=== PATIENT | female | born 1995 | race Native Hawaiian/Other Pacific Islander ===

== ENCOUNTER 2021-03-02 14:52 | Emergency (ER) | payer OTHER, SELFPAY ==
[2021-03-02 15:09] VITALS: BP 131/81; PULSE 72; RESP 16; TEMP 36.6; O2SAT 98; BMI 43.4
--- NOTE | 2021-03-02 16:18 | ED.DENTAL ---
HPI - Dental/Oral General Chief complaint: Dental/Oral Stated complaint: QUEST GUM INFECTION Time Seen by Provider: 03/02/21 15:41 Source: patient Mode of arrival: ambulatory Limitations: no limitations History of Present Illness HPI Narrative: 25 y/o female with 4 days of bleeding gums. When she brushes her teeth or gums bleed and her gums are painful. She feels that her gums are swollen especially in her back molars. She has no dentist and has not seen a dentist in years. No recent dental work. No fevers, she can swallow and open her mouth all the way. No nausea or vomiting. Related Data Previous Rx's Medication Instructions Recorded amoxicillin 875 mg-potassium 1 tab PO BID 10 Days #20 tab 03/02/21 clavulanate 125 mg tablet (Augmentin) chlorhexidine gluconate 0.12 % 15 ml BUCCAL BID 14 Days #473 ml 03/02/21 mouthwash Allergies Allergy/AdvReac Type Severity Reaction Status Date / Time No Known Allergies Allergy Unverified 03/14/20 16:23 Review of Systems Review of Systems: Constitutional : No Weight loss, No Fever, No Chills, No Night Sweats,No Fatigue, No Malaise ENT/Mouth : + gum pain, bleeding gums. No dental pain. NoSinus Pain, No Hoarseness, No sore throat, No Rhinorrhea, NoSwallowing Difficulty Eyes: No Eye Pain, No Swelling, No Redness, No Foreign Body, NoDischarge, No Vision Changes Cardiovascular : No Chest Pain, No SOB, No Dyspnea on Exertion, NoOrthopnea, No Edema, No Palpitations Respiratory : No Cough, No Sputum, No Wheezing, No Smoke Exposure, No Dyspnea Gastrointestinal : No Nausea, No Vomiting, No Diarrhea, NoConstipation, No abdominal Pain, Genitourinary : no irregular bleeding, No Dysuria, No UrinaryFrequency, No Hematuria, No Urinary Incontinence, No Urgency, No FlankPain, No Urinary Flow Changes, No Hesitancy Musculoskeletal : No joint pain, No Myalgias, No Joint Swelling Skin : No Skin Lesions, No rash PMFSH Past Medical History Medical History (Updated 03/02/21 @ 16:24 by NORA Pinzon) No known health problems Social History Social History Advance Directives: No Advance Directives Information Provided: No Patient : No Physical Exam Vital Signs: Vital Signs: Last Vital Signs Temp 97.8 F 03/02/21 15:09 Pulse 72 03/02/21 15:09 Resp 16 03/02/21 15:09 BP 131/81 03/02/21 15:09 Pulse Ox 98 03/02/21 15:09 Body Mass Index 43.4 Const: General: cooperative, no acute distress, well developed, alert and awake Nutritional Appearance: well nourished Orientation/consciousness: patient oriented x3 Limitations: no limitations HENMT: Head: Yes normal to inspection, Yes normocephalic and Yes atraumatic Ears: hearing grossly normal bilaterally, external ears normal, TM's normal bilaterally and EAC's normal General nose exam: Normal external nose present Face and sinus: Yes normal facial exam and Yes sinuses nontender Mouth: tongue normal, oropharynx normal, moist mucous membranes, no muffled voice, no trismus and No restricted motion Teeth and gingiva: gingiva abnormal diffusely erythematous, tender and discolored; Negative for not hypertrophic and without any purulent discharge and dentition not poor Throat: Yes posterior oropharynx normal Eyes: Conjunctivae: conjunctivae normal Pupils: Equal, round and reactive pupils present EOM: EOMs intact bilaterally Neck: Neck: Yes full ROM, Yes no lymphadenopathy and Yes supple Resp: Effort & Inspection: normal respiratory effort and able to speak in complete sentences Auscultation: clear to auscultation bilaterally, no crackles, no rales, no rhonchi and no wheezes Cardio: Rate: regular rate Rhythm: regular rhythm Heart sounds: S1 normal heart sound present and S2 normal heart sound present Skin: General skin exam: no rashes or lesions noted Neuro: General: patient oriented x3, tone normal and moves all extremities Cranial nerves: Yes Equal, round and reactive pupils present Extrem: General: Yes normal to inspection and Yes full ROM Psych: Appearance: grossly normal Affect: normal affect Attitude: cooperative Thought process: Normal thought process present Course Course Course Narrative: 25-year-old female who has not seen a dentist in years presents with gingival swelling, pain, bleeding. On exam, patient as well as appearing, afebrile, no trismus, no fullness or tenderness on the floor of the mouth, no hoarseness, no drooling, no neck pain, no swelling under her chin. Posterior oropharynx is normal, patient discolored gingiva that is tender to touch an bleeds when I touch. Consult soft toothbrush, chlorhexidine mouthwash, Augmentin, follow up with dentist Gave return precautions Discharge Plan Discharge Clinical Impression: Acute gingivitis Patient Disposition: Home, Self-Care Instructions: Gingivitis (ED) Additional Instructions: Please use the mouthwash 3 times a day, and take your oral antibiotics as prescribed. Please use a soft toothbrush. Please call the dentist on Wednesday and arrange for a appointment as soon as possible. If you have trouble opening your mouth, swelling under your jaw, if you feel you have swelling in the floor of your mouth, if you have trouble swallowing, if you have fevers, please return to emergency room Prescriptions: New amoxicillin-pot clavulanate [Augmentin] 875-125 mg tablet 1 tab PO BID 10 Days Qty: 20 RF: 0 chlorhexidine gluconate 0.12 % mouthwash 15 ml buccal BID 14 Days Qty: 473 RF: 0 Interventions: ED Discharge Assessment Last Done: 03/02/21 16:27 Discharge Date/Time: 03/02/21 16:28
== END 2021-03-02 16:28 | disposition home or self-care (01) ==
PROVIDERS: Emergency Provider Emergency Medicine; PCP Physician Assistant
DX: K05.00 Acute gingivitis, plaque induced (principal); Z79.899 Other long term (current) drug therapy
CPT/HCPCS: 99283

== ENCOUNTER 2021-09-10 08:58 | Outpatient (REF) | payer OTHER, SELFPAY ==
[2021-09-10 15:57] LABS: CT PCR NOT DETECTED (Not Detect.); NG PCR NOT DETECTED (Not Detect.)
== END 2021-09-10 08:59 | disposition home or self-care (01) ==
LOC: HO.LAB 08:58
PROVIDERS: PCP Physician Assistant; Visit Provider Advanced Practice Midwife
DX: Z01.419 Encounter for gynecological examination (general) (routine) without abnormal findings (principal); Z20.2 Contact with and (suspected) exposure to infections with a predominantly sexual mode of transmission
CPT/HCPCS: 87491; 87591; 88142

== ENCOUNTER 2021-10-03 13:43 | Outpatient (REF) | payer OTHER, SELFPAY ==
[2021-10-03 14:38] LABS: Influenza A PCR POSITIVE (Negative); Influenza B PCR NEGATIVE (Negative); Resp Syncy Virus RNA Qual PCR NEGATIVE (Negative); SARS COV2 PCR INHOUSE NEGATIVE (Negative)
== END 2021-10-03 13:44 | disposition home or self-care (01) ==
LOC: HO.LNP 13:43
PROVIDERS: Visit Provider Internal Medicine
DX: Z20.822 Contact with and (suspected) exposure to COVID-19 (principal); R43.9 Unspecified disturbances of smell and taste
CPT/HCPCS: 0241U

== ENCOUNTER 2021-10-06 17:38 | Outpatient (REF) | payer OTHER, SELFPAY | END 2021-10-06 17:39 | disposition home or self-care (01) | LOC: HO.LNP 17:38 | PROVIDERS: Visit Provider Physician Assistant | DX: R35.0 Frequency of micturition (principal) | CPT/HCPCS: 87086 ==

== ENCOUNTER 2022-03-30 17:53 | Emergency (ER) | payer OTHER, SELFPAY ==
--- NOTE | ~2022-03-30 | US_ITS ---
EXAMINATION: US PELVIS COMPLETE CLINICAL INFORMATION: Pain COMPARISON: None TECHNIQUE: Transabdominal and transvaginal imaging was performed. FINDINGS: The uterus is of normal size and echogenicity measuring 6.1 x 2.8 x 4.4 cm. Uterus is retroverted in position. A regular homogeneous endometrium is identified measuring 0.6 cm. Both ovaries are of normal size and echogenicity. The right measures 2.8 x 1.3 x 1.8 cm for a volume of 3.4 mL. The left measures 2.4 x 1.6 x 1.5 cm for a volume of 3 mL. There is no pelvic free fluid. US/US pelvic and transvaginal IMPRESSION: Retroverted uterus. Ovaries are of normal size and echogenicity.
[2022-03-30 18:31] VITALS: BP 129/81; PULSE 76; RESP 18; TEMP 37.3; O2SAT 97; BMI 37.4
[2022-03-30 19:25] LABS: UPreg QC Valid YES; Urine Pregnancy NEGATIVE (NEGATIVE)
[2022-03-30 19:26] LABS: Appearance Urine Turbid; Color Urine Yellow; Glucose Urine UA Negative (Negative); Leukocyte Esterase Urine Negative (Negative); Nitrite Urine Negative (Negative); PH 7.5 (5.0-9.0); UMIC TRIGGER UACC YES; Urine Blood Moderate (2+) (Negative); Urine Ketones Trace mg/dL (Negative); Urine Protein Negative (Neg-Trace)
--- NOTE | 2022-03-30 19:32 | ED_ITS ---
HPI - Female Genitourinary General Chief complaint: Urogenital-Female Stated complaint: vaginal pain Time Seen by Provider: 03/30/22 19:18 Source: patient Mode of arrival: ambulatory Limitations: no limitations History of Present Illness HPI Narrative: Patient presents emergency department for evaluation of vaginal pain. Additionally having urethral pain/discomfort after urination. Onset was 2-3 weeks ago. Reports heavy clear/white discharge associated with this. States that today she had vaginal bleeding with presence of small clots, she is due for her menses, but does not believe that this is menstrual bleeding as she has had no premenstrual symptoms which she always does. Last menstrual period was the end of January/early February. Reports last sexual intercourse to be in December 2021. Not on any formal contraceptives. Has not taken a test. Denies fevers, chills, nausea, vomiting, abdominal pain, flank pain. Related Data Previous Rx's Medication Instructions Recorded albuterol sulfate 90 mcg/actuation 1 inh inhalation QID PRN shortness 10/03/21 aerosol inhaler of breath or wheezing #6.7 grams nitrofurantoin 100 mg PO Q12H 5 days #10 caps 10/06/21 monohydrate/macrocrystals 100 mg capsule (Macrobid) pantoprazole 20 mg tablet,delayed 20 mg PO DAILY 14 days #14 tabs 02/04/22 release cefuroxime axetil 250 mg tablet 250 mg PO Q12H #14 tabs 03/30/22 Allergies Allergy/AdvReac Type Severity Reaction Status Date / Time No Known Allergies Allergy Verified 03/30/22 18:37 Review of Systems Review of Systems: Constitutional : No Fever, No Chills ENT/Mouth : No sore throat, No Rhinorrhea Eyes: No Eye Pain, No Redness Cardiovascular : No Chest Pain, No SOB Respiratory : No Cough, No Sputum, No Wheezing Gastrointestinal : No Nausea, No Vomiting, No Diarrhea, no abdominal pain, Genitourinary : positive irregular bleeding, No Dysuria, No Urinary Frequency, positive pelvic pain Musculoskeletal : No Myalgias Skin : No rash Neuro : No Weakness, No Headache Psych : No Anxiety/Panic, No Depression Heme/Lymph: No bruising, No Lymphadenopathy Endocrine : No Polyuria, No Polydipsia Yes all other systems are reviewed and are negative [facility] Past Medical History Attestation statement: The following information was validated with the patient. Source: old records reviewed Medical History No known health problems Obese (Unknown) Surgical History Hx of tonsillectomy Family History Family History Father Heart attack, Onset Age: 50 Social History Social History Housing: House Alcohol intake: current Alcohol intake frequency: holidays/special occasions only Patient Tobacco Use Status: Never used Tobacco Tobacco use type: Cigarette e-Cigarette/Vaping Use: Never Used Second Hand Smoke Exposure: No Advance Directives: No Advance Directives Information Provided: No Current occupational status: employed Current occupation: [employer] Cognitive needs: No Hearing needs: No Vision needs: No Physical Exam Vital Signs: Vital Signs: Last Vital Signs Temp 99.2 F 03/30/22 18:31 Pulse 76 03/30/22 18:31 Resp 18 03/30/22 18:31 BP 129/81 03/30/22 18:31 Pulse Ox 97 03/30/22 18:31 O2 Del Method 03/30/22 18:31 BMI result Body Mass Index 37.4 Vital signs have been reviewed as normal and appeared to be correct. Blood pressure normal.? Heart rate normal.? Respiration rate normal. Temperature normal.? Oxygen saturation normal. Appearance: Alert.?Oriented to person, place and time. No acute distr ess.?Normal affect. Eyes: Pupils equal, round and reactive to light.? ENT: Pharynx normal.?? Neck: Normal inspection.? Neck supple.?? CVS: Heart sounds normal. Normal heart rate and rhythm.? Pulses normal.?? Respiratory: No respiratory distress.? Lung sounds clear to auscultation bilaterally?? Abdomen: Soft and non-tender. Normoactive bowel sounds. Genitourinary:? Supervised by ED KATE Reed. Normal external appearance of urethra.? No lesions/lacerations or discharge or tenderness noted. No Bartholin cyst noted.? Speculum exam: normal appearance/palpation of vagina normal. No abnormal vaginal discharge, swelling, erythema, laceratons, or active bleeding noted.?No foreign bodies noted.? No vaginal tenderness noted.? Normal appearance of cervix. Normal palpation of cervix.? Cervical os is closed.? No abnormal cervical discharge noted.? No cervical lesion/mass.?? No cervical motion tenderness noted.? Negative chandelier sign.? Normal bimanual exam.? Uterine size normal. Uterine consistency normal.? Bladder normal to palpation. Normal adnexa. Normal rectovaginal exam.? Skin: Skin warm and dry.? Normal skin color.? Extremities: No lower extremity edema.? Neuro: Moves all extremities spontaneously. Sensation intact bilaterally. No focal neuro deficits. Ambulates with normal steady gait. Course Course Course Narrative: Patient is a 26-year-old female with no significant past medical history presents to the emergency department for evaluation of dysuria and pelvic pain times 2-3 weeks. Denies concern for sexually transmitted infection or possibility of . She is overall well-appearing. Vital signs are stable, she is afebrile without tachycardia. Abdominal exam is benign. Will obtain urinalysis, urine , chlamydia and gonorrhea testing, Trichomonas testing, bacterial vaginosis panel, perform pelvic exam, obtain pelvic ultrasound. Differential includes sexually transmitted infection, bacterial vaginosis, pelvic inflammatory disease, ovarian cyst, uterine fibroid. Reevaluation(s) Reevaluation #1: CBC reveals no anemia. BMP is normal. Pelvic ultrasound reveals no acute abnormalities. Urine test is negative. urinalysis reveals hematuria, no evidence of urinary tract infection, However she is having post voiding burning. discussed all findings with patient. At this time will trial treatment for urinary tract infection, and patient is to follow-up with primary care provider/[facility] provider for further evaluation and treatment. We discussed worrisome signs and symptoms to return back to the emergency department for. All questions were answered, patient discharged home in stable condition. Time: 21:34 [facility] - Female Genitourinary Medical Records Attestation: I reviewed the patient's medical records. Lab Data Attestation: I reviewed the patient's lab results. Result diagrams: 03/30/22 20:10 03/30/22 20:10 Labs: Lab Results 03/30/22 03/30/22 03/30/22 Range/Units 18:52 18:52 20:10 WBC 10.0 (4.8-10.8) X10*3/uL RBC 4.45 (4.20-5.50) X10*6/uL Hgb 13.0 (12.0-16.0) g/dl Hct 38.4 (37.0-47.0) % MCV 86.3 (80.0-98.0) fL MCH 29.2 (27.0-33.0) pg MCHC 33.9 (31.0-35.0) g/dl RDW 11.9 (11.0-16.0) % Plt Count 378 (160-400) X10*3/uL MPV 9.3 L (9.4-12.3) fL Immature Gran % (Auto) 0.3 (0.0-0.4) % Neut % (Auto) 57.7 (45-73) % Lymph % (Auto) 34.8 (20-40) % [place] % (Auto) 5.5 (2-11) % Eos % (Auto) 1.1 (0-4) % Baso % (Auto) 0.6 (0-2) % Lymph # (Auto) 3.5 (1.2-4.9) X10*3/uL [place] # (Auto) 0.6 (0.1-1.2) X10*3/uL Eos # (Auto) 0.1 (0.0-0.4) X10*3/uL Baso # (Auto) 0.1 (0.0-0.2) X10*3/uL Abs Immat Gran (auto) 0.03 (0.00-0.03) X10*3/uL Absolute Neuts (auto) 5.7 (2.0-8.3) x10*3/uL Absolute Nucleated RBC 0.000 (0.0-0.012) X10*3/uL Nucleated RBC % (auto) 0.0 (0.0-0.2) /100WBC Sodium (135-145) mmol/L Potassium (3.3-5.1) mmol/L Chloride (96-108) mmol/L Carbon Dioxide (22-29) mmol/L Anion Gap (12-20) BUN (9-16) mg/dL Creatinine (0.5-1.4) mg/dL Estim Creat Clear Calc Estimated GFR Random Glucose (60-115) mg/dL Calcium (8.4-10.2) mg/dL Urine Color Yellow Urine Appearance Turbid Urine pH 7.5 (5.0-9.0) Ur Specific [place] 1.020 (1.005-1.025) Urine Protein Negative (Neg-Trace) mg/dL Urine Glucose (UA) Negative (Negative) mg/dL Urine Ketones Trace (Negative) mg/dL Urine Blood Moderate (2+) H (Negative) Urine Nitrite Negative (Negative) Ur Leukocyte Esterase Negative (Negative) Urine RBC 11-20 H (0-2) /HPF Urine WBC 0-5 (0-5) /HPF Ur Squamous Epith Cells 6-10 (0-2) /HPF Other Crystals Present Urine Bacteria None Seen (None Seen) Hyaline Casts 0-2 (0-2) /LPF Urine Test NEGATIVE (NEGATIVE) 03/30/22 Range/Units 20:10 WBC (4.8-10.8) X10*3/uL RBC (4.20-5.50) X10*6/uL Hgb (12.0-16.0) g/dl Hct (37.0-47.0) % MCV (80.0-98.0) fL MCH (27.0-33.0) pg MCHC (31.0-35.0) g/dl RDW (11.0-16.0) % Plt Count (160-400) X10*3/uL MPV (9.4-12.3) fL Immature Gran % (Auto) (0.0-0.4) % Neut % (Auto) (45-73) % Lymph % (Auto) (20-40) % [place] % (Auto) (2-11) % Eos % (Auto) (0-4) % Baso % (Auto) (0-2) % Lymph # (Auto) (1.2-4.9) X10*3/uL [place] # (Auto) (0.1-1.2) X10*3/uL Eos # (Auto) (0.0-0.4) X10*3/uL Baso # (Auto) (0.0-0.2) X10*3/uL Abs Immat Gran (auto) (0.00-0.03) X10*3/uL Absolute Neuts (auto) (2.0-8.3) x10*3/uL Absolute Nucleated RBC (0.0-0.012) X10*3/uL Nucleated RBC % (auto) (0.0-0.2) /100WBC Sodium 141 (135-145) mmol/L Potassium 4.2 (3.3-5.1) mmol/L Chloride 104 (96-108) mmol/L Carbon Dioxide 25 (22-29) mmol/L Anion Gap 16 (12-20) BUN 10 (9-16) mg/dL Creatinine 0.69 (0.5-1.4) mg/dL Estim Creat Clear Calc 123.8 Estimated GFR > 60 Random Glucose 85 (60-115) mg/dL Calcium 9.6 (8.4-10.2) mg/dL Urine Color Urine Appearance Urine pH (5.0-9.0) Ur Specific [place] (1.005-1.025) Urine Protein (Neg-Trace) mg/dL Urine Glucose (UA) (Negative) mg/dL Urine Ketones (Negative) mg/dL Urine Blood (Negative) Urine Nitrite (Negative) Ur Leukocyte Esterase (Negative) Urine RBC (0-2) /HPF Urine WBC (0-5) /HPF Ur Squamous Epith Cells (0-2) /HPF Other Crystals Urine Bacteria (None Seen) Hyaline Casts (0-2) /LPF Urine Test (NEGATIVE) Imaging Data pelvic us: Radiologist's impression: US/US pelvic and transvaginal IMPRESSION: ? Retroverted uterus. ? Ovaries are of normal size and echogenicity. Discharge Plan Discharge Clinical Impression: Urinary tract infection, Vaginal pain Patient Disposition: Home, Self-Care Instructions: Urinary Tract Infection in Women (ED) Additional Instructions: As we discussed, your ultrasound was normal. Your blood work was normal. Some of your testing is still pending at this time, if anything results as positive you will receive a call from the hospital. Your urine test did not show obvious bacteria, however given the your experiencing burning with urination we have started to on a course of antibiotics for urinary tract infection, please complete this entire course. Please follow-up with your [facility] provider. You may return to the emergency depar tment any new or worsening symptoms or concerns Prescriptions: New cefuroxime axetil 250 mg tablet 250 mg PO Q12H Qty: 14 0RF No Action pantoprazole 20 mg tablet,delayed release (DR/EC) 20 mg PO DAILY 14 Days Qty: 14 0RF nitrofurantoin monohyd/m-cryst [Macrobid] 100 mg capsule 100 mg PO Q12H 5 Days Qty: 10 0RF Rx Instructions: must administer with a meal/food albuterol sulfate 90 mcg/actuation HFA aerosol inhaler 1 inh inhalation QID PRN (Reason: shortness of breath or wheezing) Qty: 6.7 1RF
[2022-03-30 19:41] LABS: Bacteria Urine None Seen (None Seen); Hyaline Casts Urine 0-2 /LPF (0-2); Other Crystals Urine Present; WBC Urine 0-5 /HPF (0-5)
[2022-03-30 20:14] LABS: MANUAL DIFF FLAG NO
[2022-03-30 20:16] LABS: Basophils Absolute Auto 0.1 X10*3/uL (0.0-0.2); Basophils Percent Auto 0.6 % (0-2); Eosinophils Absolute Auto 0.1 X10*3/uL (0.0-0.4); Eosinophils Percent Auto 1.1 % (0-4); Hematocrit 38.4 % (37.0-47.0); Imm Gran Abs Auto 0.03 X10*3/uL (0.00-0.03); Imm Gran Pct Auto 0.3 % (0.0-0.4); Lymphocytes Absolute Auto 3.5 X10*3/uL (1.2-4.9); Lymphocytes Percent Auto 34.8 % (20-40); Mean Corpuscular HGB Conc 33.9 g/dl (31.0-35.0); Mean Corpuscular Hemoglobin 29.2 pg (27.0-33.0); Mean Corpuscular Volume 86.3 fL (80.0-98.0); Mean Platelet Volume 9.3 fL (9.4-12.3); Monocytes Absolute Auto 0.6 X10*3/uL (0.1-1.2); Monocytes Percent Auto 5.5 % (2-11); Neutrophils Absolute Auto 5.7 x10*3/uL (2.0-8.3); Neutrophils Percent Auto 57.7 % (45-73); Platelet Count 378 X10*3/uL (160-400); Red Blood Count 4.45 X10*6/uL (4.20-5.50); Red Cell Distribution Width 11.9 % (11.0-16.0)
[2022-03-30 20:33] LABS: Anion Gap 16 (12-20); Blood Urea Nitrogen 10 mg/dL (9-16); Calcium 9.6 mg/dL (8.4-10.2); Carbon Dioxide 25 mmol/L (22-29); Chloride 104 mmol/L (96-108); Creatinine Clr Calc Pharmacy 123.8; Estimated Glomerular Filt Rate > 60; Glucose Random 85 mg/dL (60-115); Potassium 4.2 mmol/L (3.3-5.1); Sodium 141 mmol/L (135-145)
[2022-03-31 02:13] LABS: CT PCR NOT DETECTED (Not Detect.); NG PCR NOT DETECTED (Not Detect.)
[2022-03-31 09:02] LABS: BV Int Neg Control Negative (Negative); BV Int Pos Control Positive (Positive)
== END 2022-03-30 22:48 | disposition home or self-care (01) ==
PROVIDERS: Nurse Practitioner Family; Emergency Provider Emergency Medicine; PCP Physician Assistant
DX: R10.2 Pelvic and perineal pain (principal); N39.0 Urinary tract infection, site not specified
CPT/HCPCS: 36415; 76830; 76856; 80048; 81001; 81025; 85025; 87480; 87491; 87510; 87591; 87660; 99282; 99284

== ENCOUNTER 2023-01-28 08:23 | Outpatient (AMB) | payer OTHER, SELFPAY ==
--- NOTE | 2023-01-28 08:35 | MHC.OFFWIV ---
Intake Vital Signs 01/28/23 09:02 BP 104/60 Blood Pressure Location Lt brachial Position Sitting Respiration 20 Pulse 86 Pulse Source Pulse Oximeter Temp 98.5 F Temp Source Oral Pulse Oximetry (%) 100 Oxygen Delivery Method Room Air Intake Visit Reasons: EP, Sore throat Patient Tobacco Use Status: Never used Tobacco Longitudinal Float Operator Required: No Is last menstrual period known: Yes Last menstrual period: 01/22/23 Post menopausal: No Patient : No Allergies No Known Allergies Allergy (Verified 01/28/23 09:04) Medication List - Last Reconciled 01/28/23 by Queenie Gaines RN albuterol sulfate 90 mcg/actuation 1 inh inhalation QID PRN pantoprazole 20 mg PO DAILY 14 days HPI HPI Comments History of Present Illness Details 27-year-old female who presents for 2 days of sore throat. Patient states that she has had sore throat the last 2 days positive fever of 101. She has been taking Tylenol Motrin and numbing spray with some relief. Today she feels a little bit better but was unsure she does not have strep. Denies any shortness of breath does endorse some difficulty swallowing. [facility] Medical History No known health problems Obese (Unknown) Surgical History Hx of tonsillectomy Family History Father Heart attack, Onset Age: 50 Social History Housing: House Alcohol intake: current Alcohol intake frequency: holidays/special occasions only Patient Tobacco Use Status: Never used Tobacco Tobacco use type: Cigarette e-Cigarette/Vaping Use: Never Used Second Hand Smoke Exposure: No Current occupational status: employed Current occupation: [employer] Cognitive needs: No Hearing needs: No Vision needs: No Female Reproductive History Menstrual Date of last menstrual period: 01/22/23 Review of Systems Const All systems reviewed & are unremarkable except as noted in HPI and below Reports fever(s), Denies headache(s) and Denies weakness Eyes Reports no additional complaints ENT Denies headache(s) and Reports sore throat Card Reports no additional complaints, Denies chest pain, Denies leg edema and Denies dyspnea Resp Denies cough and Denies dyspnea GI Denies abdominal pain, Denies nausea and Denies vomiting Denies urinary frequency and Denies dysuria Musc Reports no additional complaints Neuro Denies headache(s) and Denies weakness Psych Reports no additional complaints Endo Reports no additional complaints Physical Exam Const General: cooperative, healthy appearing, comfortable and no acute distress HEENT Other: Mild erythema in the posterior pharynx on the right side. Tonsils not present. No exudates. Uvula midline no trismus. Results AMB Rapid Strep AMB Rapid Strep Negative Last Edit by Queenie Gaines RN on 01/28/23 08:36 Results Reviewed Results Reviewed: Laboratory Last Values Strep Scn Rapid Clinic Negative 01/28/23 08:35 Assessment & Plan Assessment & Plan (1) Pharyngitis: Code(s): J02.9 - Acute pharyngitis, unspecified Plan VSs. Exam patient's insulin oriented no acute distress exam notable for erythema in the posterior pharynx on the right side. No trismus muffled voice uvula deviation. Rapid strep negative patient likely suffering from viral pharyngitis. Discharge instructions, follow up and treatment are discussed with patient in my usual fashion. Alternatives in treatment are also discussed. The patient will return for worsening symptoms or as needed. Advised that any labs/imaging ordered will be followed up on and contact made if further treatment needed. Counseled that patient's condition may require further evaluation and/or treatment. Symptoms of concern for worsening disorder discussed in detail in my customary manner. Patient does verbalize understanding of the plan, there are no apparent barriers to communication. The patient is given the opportunity to ask questions and have them answered to his/her satisfaction Orders: Orders AMB Rapid Strep Screen Today J02.9 - Acute pharyngitis, unspecified Patient Instructions: Your rapid strep test is negative, In the meantime soothing relief is often obtained from the following: a cup of tea with honey a cup of tea with lemon hot chocolate Chicken bullion or soup warm salt water gargles or baking soda. Mix 1 teaspoon of salt with 1 cup of water gargle for 5 to 10 seconds and then spit and repeat as needed. You can also do this with 1 teaspoon of baking soda. There are many [id number] medications to help soothe a sore throat I would suggest: CEPACOL LOZENGES CHLORASEPTIC THROAT SPRAY. There are many others.. Coding Level of Care Code Est Pt Level 3 (83015) Diagnoses Pharyngitis J02.9
[2023-01-28 09:02] VITALS: BP 104/60; PULSE 86; RESP 20; TEMP 36.9; O2SAT 100
== END 2023-01-28 08:44 | disposition home or self-care (01) ==
PROVIDERS: PCP Physician Assistant; Visit Provider Physician Assistant
DX: J02.9 Acute pharyngitis, unspecified (principal)
CPT/HCPCS: 87880; 99213

== ENCOUNTER 2023-04-22 14:42 | Outpatient (AMB) | payer OTHER, SELFPAY ==
--- NOTE | 2023-04-22 15:05 | A.OFFPC_ITS ---
Vital Signs 04/22/23 15:06 Height 5 ft 1 in Weight 183 lb BMI 34.6 BP 124/68 Blood Pressure Location Lt brachial Position Sitting Pulse 71 Pulse Source Pulse Oximeter Pulse Oximetry (%) 99 Oxygen Delivery Method Room Air Intake Visit Reasons: PE Allergies No Known Allergies Allergy (Verified 04/22/23 15:15) Medication List - Last Reconciled 04/22/23 by CHAYO Richey No Known Home Meds Tobacco use date assessed: 04/22/23 Dental Screening Dental Screen Date: 04/22/23 Did you have a dental visit in the last 12 months?: Yes Did you have a dental problem in the last 6 months where you did not have access to dental care?: No Was dental information given to patient?: Patient has dentist HPI PE HPI Details Patient is a 28-year-old female who presents today for physical exam. Medical history significant for GERD-stable with diet control. Patient has an upcoming appointment with [facility] for Pap smear 06/2023. Denies issues with alcohol. Denies eye problems, does not see eye doctor. Dentist visit up-to-date. Reports intermittent premenstrual headaches that are relieved by ghis-sjj-booyocj Tylenol or ibuprofen. No shortness of breath or chest pain. Patient is due for blood work. [facility] Medical History Bladder pain Urinary frequency Upper respiratory tract infection Urinary tract infection MDD (major depressive disorder), recurrent episode, moderate Post-COVID chronic anxiety YAJAIRA (generalized anxiety disorder) Obese (Unknown) No known health problems Surgical History Hx of tonsillectomy Family History Father Heart attack, Onset Age: 50 Social History Housing: House Alcohol intake: current Alcohol intake frequency: holidays/special occasions only Patient Tobacco Use Status: Never used Tobacco (marijuana ) e-Cigarette/Vaping Use: Currently Using (sometimes ) Second Hand Smoke Exposure: No Current occupational status: employed Current occupation: [employer] Cognitive needs: No Hearing needs: No Vision needs: No Questionnaire PHQ-9 Over the last 2 weeks, how often have you been bothered by any of the following problems? 1. Little interest or pleasure in doing things: not at all 2. Feeling down, depressed, or hopeless: not at all 3. Trouble falling or staying asleep, or sleeping too much: not at all 4. Feeling tired or having little energy: not at all 5. Poor appetite or overeating: not at all 6. Feeling bad about yourself - or that you are a failure or have let yourself or your family down: not at all 7. Trouble concentrating on things, such as reading the newspaper or watching television: not at all 8. Moving or speaking so slowly that other people could have noticed. Or the opposite - being so fidgety or restless that you have been moving around a lot more than usual: not at all 9. Thoughts that you would be better off or of hurting yourself in some way: not at all Total score: 0 Depression Screening Interpretation: Negative Depression Screening Done: Yes 77153 - PHQ-9 Billing: Yes Source: Developed by Drs. Tl Navarrete, Xiomara Ann, Ramses Reilly and colleagues, with an educational hemant from [employer]. Thrive Questionnaire Date Thrive assessed: 10/06/21 AUDIT C Alcohol Use Questionnaire (AUDIT-C) 1. How often do you have a drink containing alcohol?: 2-4 times a month 2. How many drinks containing alcohol do you have on a typical day when you are drinking?: 3 or 4 3. How often do you have six or more drinks on one occasion?: Never Total Score: 3 Score Reviewed/Action Taken: Yes YAJAIRA-7 AMB Questionnaire YAJAIRA-7 Date YAJAIRA - 7 assessed: 04/22/23 Feeling nervous, anxious, or on edge: 0 = Not at all Not being able to stop or control worryin = Not at all Worrying too much about different things: 0 = Not at all Trouble relaxin = Not at all Being so restless that it is hard to sit still: 0 = Not at all Becoming easily annoyed or irritable: 0 = Not at all Feeling afraid as if something awful might happen: 0 = Not at all Total YAJAIRA-7 score (0-4 normal; 5-9 mild; 10-14 moderate; 15-21 severe): 0 Source: Developed by Drs. Tl Navarrete, Xiomara Ann, Ramses Reilly and colleagues, with an educational hemant from [employer]. YAJAIRA-7 Assessment Billing YAJAIRA-7 Assessment Tool: YAJAIRA-7 Assessment 12638 Review of Systems Const Denies body aches, Denies chills, Denies fever(s) and Reports headache(s) (Intermittent) ENT Denies dizziness, Denies otalgia, Reports headache(s) (Intermittent), Denies nasal discharge, Denies sinus pain and Denies sore throat Card Denies chest pain, Denies edema, Denies lightheadedness and Denies dyspnea Resp Denies cough, Denies dyspnea and Denies wheezing GI Denies abdominal pain, Denies constipation, Denies diarrhea, Denies nausea and Denies vomiting Denies dysuria Musc Denies myalgias Skin/Breast Denies rash Neuro Denies dizziness and Reports headache(s) (Intermittent) Aller/Immun Denies wheezing Physical exam (Primary Care) Vital Signs: Last Vital Signs Pulse 71 04/22/23 15:06 BP 124/68 04/22/23 15:06 Pulse Ox 99 04/22/23 15:06 Oxygen Delivery Method Room Air 04/22/23 15:06 BMI result Body Mass Index 34.6 Tobacco/Smoking Status: Tobacco use Status Tobacco use date assessed 04/22/23 04/22/23 15:11 Patient Tobacco Use Status Never used Tobacco ( 04/22/23 15:11 marijuana ) Tobacco use type 04/22/23 15:11 e-Cigarette/Vaping Use Currently Using (sometimes ) 04/22/23 15:11 PHQ-9: PHQ-9 Score PHQ-9: Total score 0 04/22/23 15:11 Depression Screening Interpretation: Negative Thrive Assessment: Date of Thrive Assessment Date Thrive assessed 10/06/21 04/22/23 15:11 Const General: cooperative and no acute distress Orientation/consciousness: patient oriented x3 HENMT Head: Yes normocephalic and Yes atraumatic Ears: TM's normal bilaterally Face and sinus: Yes sinuses nontender Mouth: oropharynx normal and moist mucous membranes Throat: Yes posterior oropharynx normal Eyes General: appearance normal, both eyes and all related structures Pupils: Equal, round and reactive pupils present EOM: EOMs intact bilaterally Neck Neck: Yes normal visual inspection, Yes full ROM and Yes no lymphadenopathy Thyroid: Thyroid normal Resp Effort & Inspection: normal respiratory effort and able to speak in complete sentences Auscultation: clear to auscultation bilaterally, no crackles, no rales, no rhonchi and no wheezes Cardio Rate: regular rate Rhythm: regular rhythm Heart sounds: S1 normal heart sound present, S2 normal heart sound present and no murmurs GI Palpation (GI): Soft to palpation, not firm, nontender, no guarding, not rigid and no hepatosplenomegaly Auscultation: normal bowel sounds General: No CVA tenderness Back/Spine/Pelvis Back: No CVA tenderness Skin General skin exam: no rashes or lesions noted Neuro General: patient oriented x3 Cranial nerves: Yes Equal, round and reactive pupils present Gait exam (Neuro): Normal gait present Extrem General: Yes full ROM and No edema Assessment and Plan Assessment & Plan (1) GERD (gastroesophageal reflux disease): Code(s): K21.9 - Gastro-esophageal reflux disease without esophagitis Plan: Avoid GERD trigger foods Do not lay down 2-3 hours after evening meal Patient reports intermittently taking prjc-zbx-qowclpt antiacid medications (2) Annual physical exam: Code(s): Z00.00 - Encounter for general adult medical examination without abnormal findings Plan: Repeat in 1 year (3) Premenstrual headache: Code(s): G43.829 - Menstrual migraine, not intractable, without status migrainosus Plan: Reports intermittent premenstrual headaches that are relieved by ltxi-zpu-gvpzonh Tylenol or ibuprofen. Patient is to notify office if worsening headaches Orders: Orders TSH reflex Free T4 Today Z00.00 - Encounter for general adult medical examination without abnormal findings Comprehensive Met. Panel Today Z00.00 - Encounter for general adult medical examination without abnormal findings Complete Blood Count Auto Diff Today Z00.00 - Encounter for general adult medical examination without abnormal findings Vitamin D 25-OH Total Today Z00.00 - Encounter for general adult medical examination without abnormal findings Coding Level of Care Code Est Pt Prev Care 18-39y(86645) Diagnoses GERD (gastroesophageal reflux disease) K21.9 Annual physical exam Z00.00 Premenstrual headache G43.829 Additional Codes YAJAIRA-7 Assessment Billing - YAJAIRA-7 Assessment Tool: YAJAIRA-7 Assessment [id number] ([id number])
[2023-04-22 15:06] VITALS: BP 124/68; PULSE 71; O2SAT 99; BMI 34.6
== END 2023-04-22 15:24 | disposition home or self-care (01) ==
PROVIDERS: PCP Physician Assistant; Visit Provider Nurse Practitioner Family
DX: K21.9 Gastro-esophageal reflux disease without esophagitis (principal); Z00.00 Encounter for general adult medical examination without abnormal findings; G43.829 Menstrual migraine, not intractable, without status migrainosus
CPT/HCPCS: 99395

== ENCOUNTER 2023-12-01 08:02 | Outpatient (AMB) | payer OTHER, SELFPAY ==
[2023-12-01 08:10] VITALS: BP 118/72; BMI 34.8
--- NOTE | 2023-12-01 08:10 | MHC.PC.OV ---
Vital Signs 12/01/23 08:10 Height 5 ft 1 in Weight 184 lb 6 oz BMI 34.8 BP 118/72 Blood Pressure Location Lt brachial Position Sitting Pulse Source Pulse Oximeter Oxygen Delivery Method Room Air Intake Visit Reasons: stomach pain Production Miner Required: No Accompanied by: Self / Same As Patient Allergies No Known Allergies Allergy (Verified 12/01/23 08:11) Tobacco use date assessed: 12/01/23 Dental Screening Dental Screen Date: 12/01/23 Did you have a dental visit in the last 12 months?: Yes Did you have a dental problem in the last 6 months where you did not have access to dental care?: No Was dental information given to patient?: Patient has dentist HPI stomach pain HPI Details Patient is a 28-year-old female here today for problem visit. Patient has not been seen at the primary care office for nearly 2 years. Patient's past medical history significant for obesity and GERD. She reports over the last 2 weeks having left upper quadrant abdominal pain worse when she eats. She reports the pain radiates into her back at times. She otherwise denies any vomiting, diarrhea, constipation, fever chills. [facility] Medical History Bladder pain Urinary frequency Upper respiratory tract infection Urinary tract infection MDD (major depressive disorder), recurrent episode, moderate Post-COVID chronic anxiety YAJAIRA (generalized anxiety disorder) Obese (Unknown) No known health problems Surgical History Hx of tonsillectomy Family History Father Heart attack, Onset Age: 50 Social History Housing: House Alcohol intake: current Alcohol intake frequency: holidays/special occasions only Patient Tobacco Use Status: Never used Tobacco (marijuana ) e-Cigarette/Vaping Use: Never Used (sometimes ) Second Hand Smoke Exposure: No Current occupational status: employed Current occupation: [employer] Cognitive needs: No Hearing needs: No Vision needs: No Questionnaire PHQ-9 Over the last 2 weeks, how often have you been bothered by any of the following problems? 1. Little interest or pleasure in doing things: not at all 2. Feeling down, depressed, or hopeless: not at all 3. Trouble falling or staying asleep, or sleeping too much: not at all 4. Feeling tired or having little energy: not at all 5. Poor appetite or overeating: not at all 6. Feeling bad about yourself - or that you are a failure or have let yourself or your family down: not at all 7. Trouble concentrating on things, such as reading the newspaper or watching television: not at all 8. Moving or speaking so slowly that other people could have noticed. Or the opposite - being so fidgety or restless that you have been moving around a lot more than usual: not at all 9. Thoughts that you would be better off or of hurting yourself in some way: not at all Total score: 0 Depression Screening Interpretation: Negative Depression Screening Done: Yes 76781 - PHQ-9 Billing: Yes Source: Developed by Drs. Tl Navarrete, Xiomara Ann, Ramses Reilly and colleagues, with an educational hemant from [employer]. Thrive Questionnaire Date Thrive assessed: 12/01/23 I am a: Patient What is your living situation today?: I have a steady place to live Within the past 12 months, did the food you bought not last and you didn't have the money to get more?: Never true Within the past 12 months, did you worry whether your food would run out before you got money to buy more?: Never true Do you have trouble paying for medicines?: No Do you have trouble getting transportation to medical appointments?: No Do you have trouble paying your heating and electricity bill?: No Do you have trouble taking care of your child, family member or friend?: No Do you have trouble with day-to-day activities such as bathing, preparing meals, shopping, managing finances, etc.?: No Are you currently unemployed and looking for a job?: No Are you interested in more education?: No Please select the resources that you would like help with: None Currently or been in a relationship where the following occur: no concerns reported THRIVE Score: 0 AUDIT C Alcohol Use Questionnaire (AUDIT-C) 1. How often do you have a drink containing alcohol?: 2-4 times a month 2. How many drinks containing alcohol do you have on a typical day when you are drinking?: 3 or 4 3. How often do you have six or more drinks on one occasion?: Never Total Score: 3 Score Reviewed/Action Taken: Yes YAJAIRA-7 AMB Questionnaire YAJAIRA-7 Date YAJAIRA - 7 assessed: 12/01/23 Feeling nervous, anxious, or on edge: 0 = Not at all Not being able to stop or control worryin = Not at all Worrying too much about different things: 0 = Not at all Trouble relaxin = Not at all Being so restless that it is hard to sit still: 0 = Not at all Becoming easily annoyed or irritable: 0 = Not at all Feeling afraid as if something awful might happen: 0 = Not at all Total YAJAIRA-7 score (0-4 normal; 5-9 mild; 10-14 moderate; 15-21 severe): 0 Source: Developed by Drs. Tl Navarrete, Xiomara Ann, Ramses Reilly and colleagues, with an educational hemant from [employer]. YAJAIRA-7 Assessment Billing YAJAIRA-7 Assessment Tool: YAJAIRA-7 Assessment 14932 Review of Systems Const Denies headache(s) Eyes Denies loss of vision ENT Denies vertigo, Denies dizziness, Denies headache(s) and Denies sore throat Card Denies chest pain, Denies leg edema and Denies lightheadedness Resp Denies cough, Denies hemoptysis and Denies wheezing GI Denies abdominal pain, Denies melena, Denies constipation, Denies diarrhea and Denies vomiting Denies urinary frequency, Denies dysuria and Denies urinary urgency Musc Denies arthralgias, Denies joint swelling, Denies numbness and Denies tingling Neuro Denies Abnormal speech present, Denies behavioral changes, Denies vertigo, Denies dizziness, Denies headache(s), Denies loss of vision, Denies memory loss, Denies numbness and Denies tingling Psych Denies anxiety, Denies behavioral changes, Denies depression, Denies memory loss and Denies panic attacks Ash/Lymph Denies easy bleeding and Denies easy bruising Aller/Immun Denies wheezing Physical exam (Primary Care) Vital Signs: Oxygen Delivery Method Room Air 12/01/23 08:10 BMI result Body Mass Index 34.8 Tobacco/Smoking Status: Tobacco use Status Tobacco use date assessed 12/01/23 12/01/23 08:16 Patient Tobacco Use Status Never used Tobacco ( 12/01/23 08:16 marijuana ) Tobacco use type 04/22/23 15:24 e-Cigarette/Vaping Use Never Used (sometimes ) 12/01/23 08:16 PHQ-9: PHQ-9 Score PHQ-9: Total score 0 12/01/23 08:16 Depression Screening Interpretation: Negative Thrive Assessment: Date of Thrive Assessment Date Thrive assessed 12/01/23 12/01/23 08:16 Currently or been in a relationship where the following occur: no concerns reported Const General: healthy appearing, no acute distress, alert and awake Nutritional Appearance: well nourished Orientation/consciousness: oriented to person, oriented to place and oriented to time HENMT Ears: TM's normal bilaterally General nose exam: Normal nasal mucous membranes and turbinates present Eyes Conjunctivae: conjunctivae normal Sclerae: sclerae normal Pupils: Equal, round and reactive pupils present Neck Neck: Yes no lymphadenopathy and Yes no JVD Thyroid: Thyroid normal Carotids: no bruits Resp Effort & Inspection: normal respiratory effort and not tachypneic Auscultation: no crackles, no rales, no rhonchi and no wheezes Cardio Rate: regular rate Rhythm: regular rhythm Heart sounds: no murmurs and normal S1 and S2 GI Other: REPORTED LEFT UPPER QUADRANT PRESSURE TO PALPATION. Palpation (GI): Soft to palpation, Tenderness to palpation present (GI) in the LUQ, no hepatomegaly and no splenomegaly Auscultation: normal bowel sounds Skin General skin exam: no rashes or lesions noted and dry skin Neuro General: oriented to person, oriented to place and oriented to time Cranial nerves: Yes Equal, round and reactive pupils present Speech: No Abnormal speech present Gait exam (Neuro): Normal gait present Motor exam (neuro): no tremor noted Extrem Right upper extremity: full ROM Left upper extremity: full ROM Right lower extremity: full ROM; no edema Left lower extremity: full ROM; no edema Psych Mental Status: mental status grossly normal Speech and movement: Normal speech and movement present Affect: normal affect Attitude: cooperative Thought process: Normal thought process present Assessment and Plan Assessment & Plan (1) Left upper quadrant abdominal pain: Code(s): R10.12 - Left upper quadrant pain Plan: Patient reports having 2 week history of left upper quadrant pain that radiates into her back. She reports the pain is intermittent and sometimes is worse when she eats. Does have a history of GERD that she does use jrck-npz-bdluwgb antacids with good effect. She otherwise denies any vomiting, nausea, diarrhea or bruising. Low concern here for a gallbladder or liver etiology. Pain reported mostly located in the left upper abdominal quadrant. Will send for ultrasound abdomen to evaluate for splenomegaly Orders: Orders US abdomen limited Today R10.12 - Left upper quadrant pain Lipase Today R10.12 - Left upper quadrant pain Liver Panel Today R10.12 - Left upper quadrant pain Complete Blood Count no Diff Today R10.12 - Left upper quadrant pain Basic Metabolic Panel Today R10.12 - Left upper quadrant pain UA CC w/rflx Micro + Cult Today R10.12 - Left upper quadrant pain, R30.0 - Dysuria Coding Level of Care Code Est Pt Level 3 (28144) Diagnoses Left upper quadrant abdominal pain R10.12 Additional Codes YAJAIRA-7 Assessment Billing - YAJAIRA-7 Assessment Tool: YAJAIRA-7 Assessment 75330 ([id number])
== END 2023-12-01 08:34 | disposition home or self-care (01) ==
PROVIDERS: PCP Physician Assistant; Visit Provider Physician Assistant
DX: R10.12 Left upper quadrant pain (principal)
CPT/HCPCS: 99213

== ENCOUNTER 2024-04-12 07:31 | Outpatient (REF) | payer OTHER, SELFPAY ==
[2024-04-13 04:36] LABS: CT PCR NOT DETECTED (Not Detect.); NG PCR NOT DETECTED (Not Detect.)
[2024-04-14 11:13] LABS: HPV mRNA E6/E7 Not Detected (Not Detected)
== END 2024-04-12 07:32 | disposition home or self-care (01) ==
LOC: HO.LNP 07:31
PROVIDERS: PCP Physician Assistant; Visit Provider Advanced Practice Midwife
DX: Z01.419 Encounter for gynecological examination (general) (routine) without abnormal findings (principal); Z11.51 Encounter for screening for human papillomavirus (HPV); Z20.2 Contact with and (suspected) exposure to infections with a predominantly sexual mode of transmission
CPT/HCPCS: 87491; 87591; 87624; 88175

== ENCOUNTER 2024-04-12 07:31 | Outpatient (AMB) | payer OTHER, SELFPAY ==
[2024-04-12 07:43] VITALS: BP 110/70; BMI 35.0
--- NOTE | 2024-04-12 07:43 | MHC.OFFVIS ---
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 Doing well with no concerns. She tries to eat healthy and stays active with exercise. Has lost weight successfully. Regular monthly menses. Currently is sexually active. Uses condoms. She denies vaginal itching and irritation. STI screening offered; she accepts. Denies family history of breast, ovarian or colon cancer. Last pap smear 2021, negative. [facility] Medical History Bladder pain Urinary frequency Upper respiratory tract infection Urinary tract infection MDD (major depressive disorder), recurrent episode, moderate Post-COVID chronic anxiety YAJAIRA (generalized anxiety disorder) Obese (Unknown) No known health problems Surgical History Hx of tonsillectomy Family History Father Heart attack, Onset Age: 50 Social History Housing: House Alcohol intake: current Alcohol intake frequency: holidays/special occasions only Patient Tobacco Use Status: Never used Tobacco (marijuana ) e-Cigarette/Vaping Use: Never Used (sometimes ) Second Hand Smoke Exposure: No Current occupational status: employed Current occupation: [employer] Cognitive needs: No Hearing needs: No Vision needs: No Female Reproductive History Menstrual Duration of menses: 3-5 days Date of last menstrual period: 03/25/24 control method: condoms Total pregnancies: 1 Ab induced: 1 Date of last pap smear: 09/10/21 (neg) Review of Systems Const All systems reviewed & are unremarkable except as noted in HPI and below Reports as per HPI Eyes Reports no additional complaints ENT Reports no additional complaints Card Reports no additional complaints Resp Reports no additional complaints GI Reports as per HPI and Reports no additional complaints Reports as per HPI Musc Reports no additional complaints Skin/Breast Reports as per HPI Neuro Reports no additional complaints Psych Reports no additional complaints Endo Reports no additional complaints Ash/Lymph Reports no additional complaints Aller/Immun Reports no additional complaints Physical Exam Vital Signs: Last Vital Signs BP 110/70 04/12/24 07:43 BMI result Body Mass Index 35.0 Const General: cooperative, healthy appearing, no acute distress, well developed and alert Orientation/consciousness: patient oriented x3 HEENT Head: Yes normal to inspection Eyes General: appearance normal, both eyes and all related structures Neck Neck: Yes normal visual inspection Thyroid: Thyroid normal Chest Chest palpation & inspection: normal inspection of the chest and other (no puckering, dimpling, peau de orange, retraction, discharge, masses) Breast/axilla inspection: normal inspection of the breasts Breast/axilla palpation: normal palpation of the breasts Resp Effort & Inspection: normal respiratory effort GI Inspection: Yes normal to inspection Palpation (GI): Soft to palpation Rectal Exam - Female: deferred General: Yes bladder normal to palpation External Female Exam: normal external appearance and normal appearance of the urethra Speculum Exam - Vagina: normal appearance of the vagina, normal palpation and normal vaginal discharge Speculum Exam - Cervix: normal appearance of the cervix and normal palpation Bimanual exam- vagina & uterus: normal bimanual exam, normal palpation, uterine size normal, bladder normal to palpation, normal palpation and non-tender Bimanual Exam- Adnexa, other: no masses Skin General skin exam: no rashes or lesions noted Rashes: no rashes Neuro General: patient oriented x3 Cognition (Neuro): normal cognition Extrem General: Yes normal to inspection Psych Attitude: cooperative Thought process: Normal thought process present Assessment & Plan Assessment & Plan (1) Encounter for well woman exam with routine gynecological exam: Code(s): Z01.419 - Encounter for gynecological examination (general) (routine) without abnormal findings Category: Medical Plan Discussed: Current recommendations for pap smears per ASCCP guidelines. Pap and GC chlamydia obtained. Breast awareness and periodic breast exams. Maintain a healthy lifestyle including a well balanced diet and routine exercise. Use condoms for STI and prevention. Patient verbalizes understanding and agrees to the plan of care. She was given opportunity to ask questions and all questions were answered to the best of my ability. 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 This note is constructed using voice recognition software. While every effort has been made to ensure accuracy, front load trash truck driver errors may have been included. Orders: Orders CT NG by PCR Today Z20.2 - Contact with and (suspected) exposure to infections with a predominantly sexual mode of transmission PAP + HPV E6/E7 rfx 1845 Today Z01.419 - Encounter for gynecological examination (general) (routine) without abnormal findings Coding Level of Care Code Est Pt Prev Care 18-39y(08774) Diagnoses Encounter for well woman exam with routine gynecological exam Z01.419
== END 2024-04-12 08:09 | disposition home or self-care (01) ==
PROVIDERS: PCP Physician Assistant; Visit Provider Advanced Practice Midwife
DX: Z01.419 Encounter for gynecological examination (general) (routine) without abnormal findings (principal)
CPT/HCPCS: 99395

== ENCOUNTER 2024-09-12 11:15 | Outpatient (AMB) | payer OTHER, SELFPAY ==
--- NOTE | 2024-09-12 11:46 | MHC.PC.OV ---
Vital Signs 09/12/24 11:50 Height 5 ft 1 in Weight 190 lb 2 oz BMI 35.9 BP 120/74 Blood Pressure Location Lt brachial Position Sitting Pulse 80 Pulse Source Palpation Intake Visit Reasons: annual exam Intake Note: Patient is here today for a physical. Corrosion Technician Required: No Accompanied by: Self / Same As Patient Allergies No Known Allergies Allergy (Verified 09/12/24 12:08) Medication List - Last Reconciled 09/12/24 by Juan R Vargas PA-C No Known Home Meds Tobacco use date assessed: 09/12/24 Dental Screening Dental Screen Date: 09/12/24 Did you have a dental visit in the last 12 months?: Yes Did you have a dental problem in the last 6 months where you did not have access to dental care?: No HPI annual exam HPI Details Patient is a 29-year-old female here today for annual physical. Patient has a past medical history significant for GERD, obesity. Concerns--> patient does understand BMI is over 30, she does report being in a relationship in his happy which he attributes to her weight gain. . She also reports she has developed itchy rash over her antecubital regions bilaterally and around her eyes. She does report having history of eczema. Vaccines: Up-to-date with COVID vaccine, tetanus vaccine. FURNACE UTILITY OPERATOR: does see a FURNACE UTILITY OPERATOR here in [facility] Medical History Bladder pain Urinary frequency Upper respiratory tract infection Urinary tract infection MDD (major depressive disorder), recurrent episode, moderate Post-COVID chronic anxiety YAJAIRA (generalized anxiety disorder) Obese (Unknown) No known health problems Surgical History Hx of tonsillectomy Family History Father Heart attack, Onset Age: 50 Social History (Updated 09/12/24 @ 12:10 by Juan R Vargas PA-C) Housing: House Alcohol intake: current Alcohol intake frequency: holidays/special occasions only Alcohol type: beer Patient Tobacco Use Status: Never used Tobacco (marijuana ) e-Cigarette/Vaping Use: Never Used (sometimes ) Second Hand Smoke Exposure: No Substance Use Type: Marijuana service: No Current occupational status: employed Current occupation: [employer] Cognitive needs: No Hearing needs: No Vision needs: No Questionnaire PHQ-9 Over the last 2 weeks, how often have you been bothered by any of the following problems? 1. Little interest or pleasure in doing things: not at all 2. Feeling down, depressed, or hopeless: not at all 3. Trouble falling or staying asleep, or sleeping too much: not at all 4. Feeling tired or having little energy: not at all 5. Poor appetite or overeating: not at all 6. Feeling bad about yourself - or that you are a failure or have let yourself or your family down: not at all 7. Trouble concentrating on things, such as reading the newspaper or watching television: not at all 8. Moving or speaking so slowly that other people could have noticed. Or the opposite - being so fidgety or restless that you have been moving around a lot more than usual: not at all 9. Thoughts that you would be better off or of hurting yourself in some way: not at all Total score: 0 Depression Screening Interpretation: Negative Depression Screening Done: Yes 12036 - PHQ-9 Billing: Yes Source: Developed by Drs. Tl Navarrete, Xiomara Ann, Ramses Reilly and colleagues, with an educational hemant from [employer]. Thrive Questionnaire Date Thrive assessed: 09/12/24 I am a: Patient What is your living situation today?: I have a steady place to live Within the past 12 months, did the food you bought not last and you didn't have the money to get more?: Never true Within the past 12 months, did you worry whether your food would run out before you got money to buy more?: Never true Do you have trouble paying for medicines?: No Do you have trouble getting transportation to medical appointments?: No Do you have trouble paying your heating and electricity bill?: No Do you have trouble taking care of your child, family member or friend?: No Do you have trouble with day-to-day activities such as bathing, preparing meals, shopping, managing finances, etc.?: No Are you currently unemployed and looking for a job?: No Are you interested in more education?: No Please select the resources that you would like help with: None Currently or been in a relationship where the following occur: No concerns reported THRIVE Score: 0 AUDIT C Alcohol Use Questionnaire (AUDIT-C) 1. How often do you have a drink containing alcohol?: Monthly or less 2. How many drinks containing alcohol do you have on a typical day when you are drinking?: 1 or 2 3. How often do you have six or more drinks on one occasion?: Monthly Total Score: 3 YAJAIRA-7 AMB Questionnaire YAJAIRA-7 Date YAJAIRA - 7 assessed: 09/12/24 Feeling nervous, anxious, or on edge: 0 = Not at all Not being able to stop or control worryin = Not at all Worrying too much about different things: 0 = Not at all Trouble relaxin = Not at all Being so restless that it is hard to sit still: 0 = Not at all Becoming easily annoyed or irritable: 0 = Not at all Feeling afraid as if something awful might happen: 0 = Not at all Total YAJAIRA-7 score (0-4 normal; 5-9 mild; 10-14 moderate; 15-21 severe): 0 Source: Developed by Drs. Tl Navarrete, Xiomara Ann, Ramses Reilly and colleagues, with an educational hemant from [employer]. YAJAIRA-7 Assessment Billing YAJAIRA-7 Assessment Tool: YAJAIRA-7 Assessment 81936 Review of Systems Const Denies body aches, Denies chills, Denies excessive sweating, Denies fatigue, Denies fever(s) and Denies headache(s) Eyes Denies blurry vision ENT Denies dysphagia, Denies vertigo, Denies dizziness, Denies headache(s), Denies hearing loss and Denies tinnitus Card Denies chest pain, Denies chest pain with activity, Denies syncope, Denies irregular heart rhythm and Denies dyspnea Resp Denies chest congestion, Denies cough, Denies hemoptysis, Denies dyspnea and Denies wheezing GI Denies abdominal pain, Denies melena, Denies hematochezia, Denies coffee ground emesis, Denies dysphagia, Denies diarrhea, Denies nausea and Denies vomiting Denies urinary frequency, Denies dysuria, Denies urinary hesitancy and Denies urinary urgency Musc Denies arthralgias, Denies limited range of motion, Denies muscle cramps and Denies muscle weakness Skin/Breast Denies rash and Denies skin ulcer Neuro Denies Abnormal speech present, Denies confusion, Denies vertigo, Denies dizziness, Denies syncope, Denies headache(s), Denies memory loss and Denies seizure-like activity Psych Denies anxiety, Denies confusion, Denies depression, Denies memory loss, Denies panic attacks and Denies paranoia Endo Denies excessive sweating, Denies fatigue, Denies flushing, Denies polydipsia and Denies polyuria Aller/Immun Denies wheezing Physical exam (Primary Care) Vital Signs: Last Vital Signs Pulse 80 09/12/24 11:50 BP 120/74 09/12/24 11:50 BMI result Body Mass Index 35.9 BMI Assessment/Plan discussion: High BMI High, discussed plan: lifestyle, weight reduction, dietary and physical activity Tobacco/Smoking Status: Tobacco use Status Tobacco use date assessed 09/12/24 09/12/24 11:52 Patient Tobacco Use Status Never used Tobacco ( 09/12/24 12:10 marijuana ) Tobacco use type 04/22/23 15:24 e-Cigarette/Vaping Use Never Used (sometimes ) 09/12/24 12:10 PHQ-9: PHQ-9 Score PHQ-9: Total score 0 09/12/24 12:11 Depression Screening Interpretation: Negative Thrive Assessment: Date of Thrive Assessment Date Thrive assessed 09/12/24 09/12/24 11:52 Currently or been in a relationship where the following occur: No concerns reported Const General: cooperative, comfortable, no acute distress, alert and awake; No confusion Orientation/consciousness: oriented to person, oriented to place, patient oriented x3 and No confusion HENMT Head: Yes normocephalic Ears: external ears normal and TM's normal bilaterally Face and sinus: No sinus tenderness Mouth: Normal oral and palatal mucosa present and tongue normal Teeth and gingiva: dentition normal and gingiva normal Throat: Yes posterior oropharynx normal, Yes tonsils normal and Yes uvula midline Eyes Conjunctivae: conjunctivae normal Sclerae: sclerae normal Pupils: Equal, round and reactive pupils present EOM: EOMs intact bilaterally Direct Ophthalmoscopy: No no photophobia Neck Neck: Yes no lymphadenopathy, No tender and Yes no JVD Thyroid: Thyroid normal Carotids: no bruits Chest Chest palpation & inspection: no tenderness Resp Effort & Inspection: normal respiratory effort, no audible wheezes, not labored and no stridor Auscultation: no crackles, no rales, no rhonchi and no wheezes Cardio Jugular venous distension: no JVD Rate: regular rate, not bradycardic and not tachycardic Rhythm: regular rhythm Bruits: no carotid bruits Peripheral pulses: Peripheral pulses 2+ throughout GI Inspection: Yes normal to inspection, No abdominal wall ecchymosis and No visible herniation Palpation (GI): Soft to palpation, nontender, no guarding, not rigid and No hepatosplenomegaly present Auscultation: normoactive bowel sounds General: Yes no CVA tenderness Back/Spine/Pelvis Back: no CVA tenderness and No back tenderness Cervical Spine: cervical ROM normal Thoracic/Lumbar Spine: thoracic and lumbar spine normal to inspection, straight leg raise negative bilaterally, No thoraco-lumbar ROM limited and No lumbar spinal tenderness Skin Lesions: no lesions Rashes: no rashes Wounds: no wounds Neuro General: oriented to person, oriented to place, patient oriented x3, CN's II-XI intact bilaterally and No confusion Cranial nerves: Yes Equal, round and reactive pupils present and Yes Normal accommodation reflex present Cognition (Neuro): normal cognition Speech: No Abnormal speech present Gait exam (Neuro): Normal gait present Motor exam (neuro): 5/5 motor strength present throughout Extrem Right upper extremity: full ROM; no cyanosis Left upper extremity: full ROM; no cyanosis Right lower extremity: no edema Left lower extremity: no edema Psych Appearance: grossly normal Mental Status: mental status grossly normal Affect: normal affect Attitude: cooperative Thought process: Normal thought process present Coding Level of Care Code Est Pt Prev Care 18-39y(83544) Diagnoses Annual physical exam Z00.00 Flexural eczema L20.82 Eczema type: flexural Class 2 obesity E66.812 Additional Codes YAJAIRA-7 Assessment Billing - YAJAIRA-7 Assessment Tool: YAJAIRA-7 Assessment 64375 ([id number]) PHQ-9 - 37929 - PHQ-9 Billing: Yes ([id number]) Assessment & Plan Assessment & Plan (1) Annual physical exam: Code(s): Z00.00 - Encounter for general adult medical examination without abnormal findings Category: Medical Plan: As per HPI (2) Eczema: Code(s): L30.9 - Dermatitis, unspecified Category: Medical Qualifiers: Eczema type: flexural Qualified Code(s): L20.82 - Flexural eczema Plan: Patient has noted itchy rash over antecubital regions of her arms. She has a history of eczema. Will supply patient with topical steroid cream (3) Class 2 obesity: Code(s): E66.812 - Obesity, class 2 Category: Medical Plan: Patient does understand her BMI is over 35 and will work on being more physically active and adapting to better eating habits to reduce her weight Orders: Orders Comprehensive [place]. Panel Fast 09/12/24 Z13.1 - Encounter for screening for diabetes mellitus Complete Blood Count no Diff 09/12/24 Z13.1 - Encounter for screening for diabetes mellitus Medications: New triamcinolone acetonide 0.1% 1 appl topical DAILY 80 grams 1RF 30 days L20.82 - Flexural eczema
[2024-09-12 11:50] VITALS: BP 120/74; PULSE 80; BMI 35.9
== END 2024-09-12 12:22 | disposition home or self-care (01) ==
LOC: HO.HMCH 11:16
PROVIDERS: PCP Physician Assistant; Visit Provider Physician Assistant
DX: Z00.00 Encounter for general adult medical examination without abnormal findings (principal); L20.82 Flexural eczema; E66.812 Obesity, class 2; Z68.35 Body mass index [BMI] 35.0-35.9, adult

== ENCOUNTER → 2024-09-12 11:15 | Outpatient (BNVA) | payer OTHER, SELFPAY | PROVIDERS: PCP Physician Assistant; Visit Provider Physician Assistant | DX: Z00.00 Encounter for general adult medical examination without abnormal findings (principal); L20.82 Flexural eczema; E66.812 Obesity, class 2; Z68.35 Body mass index [BMI] 35.0-35.9, adult | CPT/HCPCS: 96127 ==

== ENCOUNTER 2024-12-28 15:28 | Outpatient (AMB) | payer OTHER, SELFPAY ==
--- OUTSIDE RECORDS SUMMARY | 2024-12-28 15:30 | XMS_ITS | Clinical Summary ---
Author Organization [facility] ity Address [address] [place] [address] Care Team Providers Care Guest Services Lead Name Role Phone Leia Greene MD Primary Care Provider Social History Tobacco Use Types Packs/Day Years Used Date Smoking Tobacco: Never Assessed Comments Unknown Sex and Gender Information Value Date Recorded Sex Assigned at Not on file Legal Sex Female 5:37 AM EST Gender Identity Not on file Sexual Orientation Not on file Plan of Treatment Health Maintenance Due Date Last Done Comments DTaP,Tdap,and Td Vaccines (1 - Tdap) 2012 Hepatitis B Vaccines (1 of 3 - 19+ 3-dose series) 2012 Cervical Cancer Screening: P ap Smear 2014 COVID-19 Vaccine (2023-2 5 season) 2024 Influenza Vaccine (Season Ended) 2025 HIB Vaccines Aged Out No longer eligi ble based on patient's age to complete this topic HPV Vaccines Aged Out No longer eligi ble based on patient's age to complete this topic Hepatitis A Vaccines Aged Out No long er eligible based on patient's age to complete this topic IPV Vaccines Aged Out No longer eligi ble based on patient's age to complete this topic MMR Vaccines Aged Out No longer eligi ble based on patient's age to complete this topic Meningococcal ACWY Vaccine Aged Out N o longer eligible based on patient's age to complete this topic Meningococcal B Vaccine Aged Out No l onger eligible based on patient's age to complete this topic Pneumococcal Vaccine: Pediat rics (0 to 5 Years) and At-Risk Patients (6 to 64 Years) Aged Out No longer eligible b ased on patient's age to complete this topic RSV Immunization Patients Un taco 20 months Aged Out No longer eligible b ased on patient's age to complete this topic Varicella Vaccines Aged Out No longer eligible based on patient's age to complete this topic Care Teams Guest Services Lead Relationship Specialty Start Date End Date Leia Greene MD PCP - General Internal Medicine 10/13/17
--- NOTE | 2024-12-28 15:34 | A.OFFPC_ITS ---
Vital Signs 12/28/24 15:36 Height 5 ft 1 in Weight 198 lb 4 oz BMI 37.5 BP 120/70 Blood Pressure Location Lt brachial Position Sitting Pulse 78 Pulse Source Pulse Oximeter Pulse Oximetry (%) 98 Intake Visit Reasons: discuss weight loss medication [place] Cutter Required: No Accompanied by: Self / Same As Patient Allergies No Known Allergies Allergy (Verified 12/28/24 15:42) Medication List - Last Reconciled 12/28/24 by Juan R Vargas PA-C triamcinolone acetonide 0.1% 1 appl topical DAILY 30 days Tobacco use date assessed: 12/28/24 Dental Screening Dental Screen Date: 12/28/24 Did you have a dental visit in the last 12 months?: Yes Did you have a dental problem in the last 6 months where you did not have access to dental care?: No Was dental information given to patient?: No HPI discuss weight loss medication HPI Details Patient is a 29-year-old female here today to discuss weight loss medication. She reports a cyclical pattern of weight loss and regain, despite efforts to maintain a healthy diet and regular exercise. The patient has been experiencing back pain, which she attributes to her weight, and believes that weight loss could alleviate her symptoms. The patient has not had thyroid function tests in several years, and there is a concern that thyroid dysfunction may be contributing to her difficulty in maintaining weight loss. She expresses willingness to undergo blood work to evaluate her thyroid function. The patient has a family history of obesity, with her mother having successfully lost weight recently. She is motivated to lose weight for her overall health and future family planning. The patient has been informed about various weight loss medications, including injectable therapies like Wegovy and Zepbound, and oral medications such as phentermine. She is interested in trying injectable therapy, provided her insurance covers it. [facility] Medical History Bladder pain Urinary frequency Upper respiratory tract infection Urinary tract infection MDD (major depressive disorder), recurrent episode, moderate Post-COVID chronic anxiety YAJAIRA (generalized anxiety disorder) Obese (Unknown) No known health problems Surgical History Hx of tonsillectomy Family History Father Heart attack, Onset Age: 50 Social History Housing: House Alcohol intake: current Alcohol intake frequency: holidays/special occasions only Alcohol type: beer Patient Tobacco Use Status: Never used Tobacco (marijuana ) e-Cigarette/Vaping Use: Never Used (sometimes ) Second Hand Smoke Exposure: No Substance Use Type: Marijuana service: No Current occupational status: employed Current occupation: [employer] Cognitive needs: No Hearing needs: No Vision needs: No Questionnaire PHQ-9 Over the last 2 weeks, how often have you been bothered by any of the following problems? 1. Little interest or pleasure in doing things: not at all Source: Developed by Drs. Tl Navarrete, Xiomara Ann, Ramses Reilly and colleagues, with an educational hemant from [employer]. Thrive Questionnaire Date Thrive assessed: 12/28/24 I am a: Patient What is your living situation today?: I have a steady place to live Within the past 12 months, did the food you bought not last and you didn't have the money to get more?: Never true Within the past 12 months, did you worry whether your food would run out before you got money to buy more?: Never true Do you have trouble paying for medicines?: No Do you have trouble getting transportation to medical appointments?: No Do you have trouble paying your heating and electricity bill?: No Do you have trouble taking care of your child, family member or friend?: No Do you have trouble with day-to-day activities such as bathing, preparing meals, shopping, managing finances, etc.?: No Are you currently unemployed and looking for a job?: No Are you interested in more education?: No Please select the resources that you would like help with: None Currently or been in a relationship where the following occur: No concerns reported THRIVE Score: 0 YAJAIRA-7 AMB Questionnaire YAJAIRA-7 Date YAJAIRA - 7 assessed: 12/28/24 Source: Developed by Drs. Tl Navarrete, Xiomara Ann, Ramses Reilly and colleagues, with an educational hemant from [employer]. Review of Systems Const Denies headache(s) Eyes Denies loss of vision ENT Denies vertigo, Denies dizziness, Denies headache(s) and Denies sore throat Card Denies chest pain, Denies leg edema and Denies lightheadedness Resp Denies cough, Denies hemoptysis and Denies wheezing GI Denies abdominal pain, Denies melena, Denies constipation, Denies diarrhea and Denies vomiting Denies urinary frequency, Denies dysuria and Denies urinary urgency Musc Denies arthralgias, Denies joint swelling, Denies numbness and Denies tingling Neuro Denies Abnormal speech present, Denies behavioral changes, Denies vertigo, Denies dizziness, Denies headache(s), Denies loss of vision, Denies memory loss, Denies numbness and Denies tingling Psych Denies anxiety, Denies behavioral changes, Denies depression, Denies memory loss and Denies panic attacks Ash/Lymph Denies easy bleeding and Denies easy bruising Aller/Immun Denies wheezing Physical exam (Primary Care) Vital Signs: Last Vital Signs Pulse 78 12/28/24 15:36 BP 120/70 12/28/24 15:36 Pulse Ox 98 12/28/24 15:36 BMI result Body Mass Index 37.5 BMI Assessment/Plan discussion: High BMI High, discussed plan: lifestyle, weight reduction, dietary and physical activity Tobacco/Smoking Status: Tobacco use Status Tobacco use date assessed 12/28/24 12/28/24 15:41 Patient Tobacco Use Status Never used Tobacco ( 12/28/24 15:41 marijuana ) Tobacco use type 04/22/23 15:24 e-Cigarette/Vaping Use Never Used (sometimes ) 12/28/24 15:41 Thrive Assessment: Date of Thrive Assessment Date Thrive assessed 12/28/24 12/28/24 15:41 Currently or been in a relationship where the following occur: No concerns reported Const General: healthy appearing, no acute distress, alert and awake Nutritional Appearance: well nourished Orientation/consciousness: oriented to person, oriented to place and oriented to time HENMT Ears: TM's normal bilaterally General nose exam: Normal nasal mucous membranes and turbinates present Eyes Conjunctivae: conjunctivae normal Sclerae: sclerae normal Pupils: Equal, round and reactive pupils present Neck Neck: Yes no lymphadenopathy and Yes no JVD Thyroid: Thyroid normal Carotids: no bruits Resp Effort & Inspection: normal respiratory effort and not tachypneic Auscultation: no crackles, no rales, no rhonchi and no wheezes Cardio Rate: regular rate Rhythm: regular rhythm Heart sounds: no murmurs and normal S1 and S2 GI Palpation (GI): Soft to palpation, nontender, no hepatomegaly and no splenomegaly Auscultation: normal bowel sounds Skin General skin exam: no rashes or lesions noted and dry skin Neuro General: oriented to person, oriented to place and oriented to time Cranial nerves: Yes Equal, round and reactive pupils present Speech: No Abnormal speech present Gait exam (Neuro): Normal gait present Motor exam (neuro): no tremor noted Extrem Right upper extremity: full ROM Left upper extremity: full ROM Right lower extremity: full ROM; no edema Left lower extremity: full ROM; no edema Psych Mental Status: mental status grossly normal Speech and movement: Normal speech and movement present Affect: normal affect Attitude: cooperative Thought process: Normal thought process present Coding Level of Care Code Est Pt Level 4 (53052) Diagnoses Class 2 obesity E66.812 Assessment & Plan Assessment & Plan (1) Class 2 obesity: Code(s): E66.812 - Obesity, class 2 Category: Medical Plan: Patient does understand her BMI is over 35 and will work on being more physically active and adapting to better eating habits to reduce her weight The patient is considering weight loss medications, including injectable options like Wegovy and Zepbound, contingent on insurance coverage. A referral to a weight management clinic may be necessary if insurance requires it. The patient is advised to continue regular physical activity and maintain a healthy diet to support weight loss efforts. Orders: Orders TSH reflex Free T4 12/28/24 E66.812 - Obesity, class 2 Medications: New tirzepatide (weight loss) (Zepbound) for 4 weeks 2.5 mg (0.5 mL) subcut QWEEK 2 mL 0RF 4 weeks E66.812 - Obesity, class 2
[2024-12-28 15:36] VITALS: BP 120/70; PULSE 78; O2SAT 98; BMI 37.5
== END 2024-12-28 16:01 | disposition home or self-care (01) ==
LOC: HO.HMCH 15:29
PROVIDERS: PCP Physician Assistant; Visit Provider Physician Assistant
DX: E66.812 Obesity, class 2 (principal); Z68.37 Body mass index [BMI] 37.0-37.9, adult

== ENCOUNTER 2025-01-23 08:53 | Outpatient (REF) | payer OTHER, SELFPAY ==
--- OUTSIDE RECORDS SUMMARY | 2025-01-23 09:09 | XMS_ITS | Clinical Summary ---
Author Organization [facility] ity Address [address] [place] [address] Care Team Providers Care Workforce Development Program Director Name Role Phone Leia Greene MD Primary [...] 2014 COVID-19 Vaccine (2023-2 5 season) 2024 Depression Screening 06/28/2024 Influenza Vaccine (#1) 2025 HIB Vaccines Aged Out No longer [...] 5 Years) and At-Risk Patients (6 to 49 Years) Aged Out No longer eligible b ased on patient's age to complete this topic RSV Immunization Patients Un taco 20 months Aged Out No longer eligible b ased on patient's age to complete this topic Varicella Vaccines Aged Out No longer eligible based on patient's age to complete this topic Care Teams Workforce Development Program Director Relationship Specialty Start Date End Date Leia Greene MD PCP - General Internal Medicine 10/13/17
[2025-01-23 09:39] LABS: Hematocrit 38.9 % (37.0-47.0); Hemoglobin 13.2 g/dl (12.0-16.0); Mean Corpuscular HGB Conc 33.9 g/dl (31.0-35.0); Mean Corpuscular Hemoglobin 29.5 pg (27.0-33.0); Mean Corpuscular Volume 86.8 fL (80.0-98.0); NRBC Abs Auto 0.000 X10*3/uL (0.0-0.012); NRBC Pct Auto 0.0 /100WBC (0.0-0.2); Platelet Count 333 X10*3/uL (160-400); Red Blood Count 4.48 X10*6/uL (4.20-5.50); White Blood Count 5.7 X10*3/uL (4.8-10.8)
[2025-01-23 10:41] LABS: Alanine Aminotransferase 17 U/L (0-31); Albumin Level 4.5 g/dL (3.5-5.0); Alkaline Phosphatase 48 U/L (39-117); Anion Gap 12 (12-20); Aspartate Amino Transferase 21 U/L (5-31); Blood Urea Nitrogen 9 mg/dL (9-16); Calcium 8.9 mg/dL (8.4-10.2); Carbon Dioxide 24 mmol/L (22-29); Chloride 109 mmol/L (96-108); Estimated Glomerular Filt Rate > 60; Potassium 3.9 mmol/L (3.3-5.1); Sodium 141 mmol/L (135-145); Total Protein 7.1 g/dL (6.5-8.0)
== END 2025-01-23 08:54 | disposition home or self-care (01) ==
LOC: HO.LAB 08:53
PROVIDERS: PCP Physician Assistant; Visit Provider Physician Assistant
DX: Z13.1 Encounter for screening for diabetes mellitus (principal); E66.812 Obesity, class 2
CPT/HCPCS: 36415; 80053; 84443; 85027